=== PATIENT | female | born 1990 | race Caucasian/White ===

== ENCOUNTER 2016-04-23 20:39 | Emergency (ER) | payer MEDICAID ==
[2016-04-23] MEDS ORDERED: CEPHALEXIN 500MG PREPACK#4 BTL TAKEHOME ONE (21:45)
[2016-04-23] MEDS ORDERED: CEPHALEXIN 500 MG CAP PO ONE (21:45)
[2016-04-23] MEDS ORDERED: SULFAMETHOX/TMP 800/160 MG 1 TAB PO ONE (21:46)
--- NOTE | 2016-04-23 21:59 | UCPHY ---
H & P Time Seen by Provider: 04/23/16 21:24 Patient Type: Established HPI/ROS: HPI Swelling to left inner thigh. 25-year-old female by private vehicle with her mother. This patient complains of a painful swelling to the right inner thigh which she noticed yesterday. She reports that she tried to drain it herself by squeezing it. She has not had a fever. She reports that has increased in size somewhat over the last 24 hours. ROS: Constitutional: No fever, no chills. No weakness. Eyes: No discharge. No changes in vision. ENT: No sore throat. No nasal congestion or rhinorrhea. Respiratory: No cough. No shortness of breath. Cardiac: No chest pain, no palpitations. Gastrointestinal: No abdominal pain, no vomiting, no diarrhea. Genitourinary: No hematuria. No dysuria or increased frequency with urination. Musculoskeletal: No back pain. No neck pain. No myalgias or arthralgias. Skin: No rashes. As above Neurological: No headache. No focal weakness or altered sensation. Past medical history: Seizure disorder she is on Keppra for this hypothyroid. Cholecystectomy, with infectious complication requiring a wound VAC. Social history: As a child. Here with mother. Nonsmoker. Physical Exam: General Appearance: Alert, no distress. This patient is responding to questions appropriately and in full sentences. This patient appears well- hydrated and well-nourished. Eyes: Pupils equal and round no pallor or injection. No lid edema, erythema or injection. Neurological: Motor sensory function is grossly intact. Cranial nerves are normal. Gait is normal. Skin: Warm and dry. Indurated hard mildly tender swelling about the size of a nickel with a faint 2-3 cm in radius erythematous border, proximal medial right thigh. Extremities are symmetrical. All joints range without pain or impingement. Psychiatric: No agitation. No depression. Database: EKG: Imaging: Procedures: Procedure: Abscess drainage. The patient's abscess was located on the right proximal medial thigh. I obtained verbal consent from the patient to drain the abscess who was informed about the possibility of bleeding and pain. The abscess was incised with 11. Blade and a small amount of purulent drainage was expressed. I irrigated the wound and placed some packing. The patient tolerated the procedure well. The procedure was performed by myself. Gram stain and culture sent. Emergency department course: Vital signs reviewed and are normal. After incision and drainage as above, she was given a dose of Keflex 500 mg and Bactrim DS. The wound area was appropriately dressed. Plan will be to discharge her with her mother with prescriptions for these antibiotics and follow up with her primary care physician in 2 days for re-evaluation. She and her mother comfortable with this plan. Return to emergency department precautions were discussed. All their questions were answered. She was discharged in good condition. Differential Diagnosis: The differential diagnosis on this patient includes but is not limited to right thigh abscess with mild associated cellulitis. Traumatic injury, foreign body unlikely. This represents a partial list of diagnoses considered. These considerations are based on history, physical exam, past history, reassessment and diagnostic testing. Constitutional: Initial Vital Signs Temperature (C) 36.7 C 04/23/16 21:30 Heart Rate 75 04/23/16 21:30 Respiratory Rate 16 04/23/16 21:30 Blood Pressure 125/85 H 04/23/16 21:30 O2 Sat (%) 98 04/23/16 21:30 O2 Delivery Mode Room Air Allergies/Adverse Reactions: Penicillins Allergy (Verified 04/23/16 21:55) vancomycin Allergy (Verified 04/23/16 21:55) Home Medications: Medication Instructions Recorded Bcp 04/23/16 Cephalexin [Keflex (*)] 500 mg PO Q6 7 Days 04/23/16 Keppra 04/23/16 Sulfamethox/Tmp 800/160 mg 1 tab PO BID@1000,2200 #14 tab 04/23/16 [Bactrim Ds] Synthroid 04/23/16 Departure - Departure Disposition: Home, Routine, Self-Care Clinical Impression: Abscess of right thigh Condition: Good Instructions: Abscess (ED) Additional Instructions: Read and follow provided instructions. Follow-up with your primary care physician in 2 days for re-evaluation as discussed. Ibuprofen dosin mg every 6 hours with meals for the next 3 days only. Take medication as prescribed. Return to the emergency department for fever, increased swelling, pain, bleeding or other serious concerns. Referrals: ESTELITA KAYE,. [Primary Care Provider] - As per Instructions Prescriptions: Cephalexin [Keflex (*)] 500 mg PO Q6 7 Days Sulfamethox/Tmp 800/160 mg [Bactrim Ds] 1 tab PO BID@1000,2200 #14 tab - PQRS PQRS Measurement: Not applicable.
[2016-04-23 22:00] VITALS: BP 125/85; PULSE 75; RESP 16; TEMP 98.1; O2SAT 98
== END 2016-04-23 22:25 | disposition home or self-care (01) ==
LOC: CED 20:39
PROC: 0H9HXZZ Drainage of Right Upper Leg Skin, External Approach (ICD-10-PCS; principal; 2016-04-23)
DX: L03.115 Cellulitis of right lower limb (principal)
CPT/HCPCS: 10061-PO; 99214-PO; G0463-PO